=== PATIENT | female | born 1985 | race African-American/Black ===

== ENCOUNTER 2023-08-10 06:39 | Day surgery (SDC) | payer BC ==
[~2023-08-10] VITALS: Ht 172.7 cm; Wt 145.9 kg
[~2023-08-10 06:39] MED LIST: AMLODIPINE BESYL5 MG PO; ATORVASTATIN CA20 MG PO; MOUNJARO7.5 MG SC; NOVOLOG MIX100 U/ML SC; REGLAN10 MG PO; TRESIBA100 UNIT/M SC; VITAMIN D2400 UNIT PO
[2023-08-10 10:55] VITALS: BP 149/99
== END 2023-08-10 09:37 | disposition home or self-care (01) | DRG 74 ==
LOC: ENDO 06:39 → ORM 07:30 → ENDO 09:37 → ORM 10:30
PROVIDERS: ATTEND Internal Medicine Gastroenterology
PROC: 0DBK8ZX Excision of Ascending Colon, Via Natural or Artificial Opening Endoscopic, Diagnostic (ICD-10-PCS; principal; 2023-08-10)
PROC: 0DB98ZX Excision of Duodenum, Via Natural or Artificial Opening Endoscopic, Diagnostic (ICD-10-PCS; 2023-08-10)
PROC: 0DB78ZX Excision of Stomach, Pylorus, Via Natural or Artificial Opening Endoscopic, Diagnostic (ICD-10-PCS; 2023-08-10)
PROC: 0DB58ZX Excision of Esophagus, Via Natural or Artificial Opening Endoscopic, Diagnostic (ICD-10-PCS; 2023-08-10)
DX: E11.43 Type 2 diabetes mellitus with diabetic autonomic (poly)neuropathy (principal); K31.84 Gastroparesis; K59.09 Other constipation; D12.2 Benign neoplasm of ascending colon; K64.8 Other hemorrhoids; K29.50 Unspecified chronic gastritis without bleeding; K44.9 Diaphragmatic hernia without obstruction or gangrene; Z79.4 Long term (current) use of insulin